=== PATIENT | female | born 1940 | race African-American/Black ===

== ENCOUNTER 2016-09-07 08:52 | Emergency (ER) | payer OTHER, MEDICARE ==
[~2016-09-07] VITALS: Ht 152.4 cm; Wt 49.9 kg
[~2016-09-07 08:52] MED LIST: AMITRIPTYLINE H10 M1 PO; ASPIRIN EC325 MG PO; ATENOLOL25 MG PO; CALCIUM + D 6001 TAB PO; CLOPIDOGREL75 MG PO; DIOVAN320 MG PO; HYDRALAZINE HYD25 MG PO; HYDRODIURIL 2525 MG PO; K-DUR 20MEQ TA20 MEQ PO; LEVOCETIRIZINE D5 MG PO; MOBIC7.5 M1 PO; NORVASC 10MG10 MG PO; SIMVASTATIN40 MG PO; VITAMIN B12 1541 TAB PO; VITAMIN B6100 MG PO; VITAMIN D3400 IU PO
--- NOTE | 2016-09-07 10:19 | ED NECK/BACK PAIN COMPLAINT ---
History of Present Illness General Chief Complaint: Neck/Upper Back Pain/Injury Stated Complaint: LFT SIDED NECK PAIN SINCE THURSDAY Source: patient, old records Exam Limitations: no limitations Vital Signs & Intake/Output Vital Signs & Intake/Output Vital Signs Date Time Temp Pulse Resp B/P B/P Pulse O2 O2 Flow FiO2 Mean Ox Delivery Rate 09/07 906 98.9 80 18 145/74 100 Room Air Allergies Coded Allergies: NO KNOWN ALLERGIES (05/30/15) Reconcile Medications AMITRIPTYLINE HCL (Amitriptyline Hydrochloride) 10 MG TABLET 1 TAB PO QPM HEADACHES (Reported) Amlodipine (Norvasc 10MG) 10 MG TAB 1 TAB PO DAILY HTN Aspirin E.c. (Ecotrin) 325 MG TAB 1 TAB PO DAILY HEART HEALTH (Reported) Atenolol 25 MG TABLET 1 TAB PO DAILY BP (Reported) Calcium/Vitamin D (Calcium + D) 600 MG/200 IU TAB 1 TAB PO DAILY SUPPLEMENT ( Reported) CHOLECALCIFEROL (VITAMIN D3) (Vitamin D3) 400 UNIT TAB.CHEW 1,400 IU PO DAILY SUPPLEMENT (Reported) CLOPIDOGREL BISULFATE (Clopidogrel) 75 MG TABLET 1 TAB PO DAILY BLOOD THINNER (Reported) CYANOCOBALAMIN (VITAMIN B-12) (Vitamin B-12) 1,000 MCG TABLET 1 TAB PO DAILY SUPPLEMENT (Reported) Cyclobenzaprine HCl 5 MG TABLET 1 TAB PO TIDPRN NECK STRAIN HYDRALAZINE HCL (Hydralazine Hydrochloride) 25 MG TABLET 2 TAB PO TID hypertension (Reported) Hydrochlorothiazide (Hydrodiuril 25 MG Tab) 25 MG TABLET 1 TAB PO DAILY BP ( Reported) LEVOCETIRIZINE DIHYDROCHLORIDE (Levocetirizine Dihydrochloride) 5 MG TAB 1 TAB PO DAILY ALLERGIES (Reported) Meloxicam (Mobic) 7.5 MG TABLET 1 TAB PO DAILY PRN pain Naproxen 250 MG TABLET 1 TAB PO BID NECK STRAIN POTASSIUM CHLORIDE (K-Dur) 20 MEQ TAB.ER.PRT 1 TAB PO DAILY POTASSIUM SUPPLEMENT (Reported) Pyridoxine (Vitamin B6) 100 MG TAB 1 TAB PO DAILY SUPPLEMENT (Reported) Simvastatin 40 MG TABLET 1 TAB PO QPM CHOLESTEROL (Reported) Valsartan (Diovan) 320 MG TAB 1 TAB PO DAILY BP (Reported) Triage Note: PT TO ED FOR EXACERBATION OF CHRONIC NECK PAIN, REPORTING MUSCLE SPASM RADIATING INTO SHOULDER. TENDER TO PALPATION. WORSE WITH MOVEMENT. TRIED IBUPROFEN TWO DAYS AGO WITH NO RELIEF, MUSCLE RUB AND ICE BAGS WITH NO IMPROVEMENT. Triage Nurses Notes Reviewed? yes HPI: 76F PMH hypertension, dyslipidemia, left sided stroke 2007 with minor residual right upper extremity hemiparesis, osteoarthritis, and chest pain syndrome PRESENTING WITH ONE DAY OF ACUTE ONSET LEFT NECK AND SHOULDER PAIN. NO TRAUMA TO THE AREA. STARTED WHEN SHE WOKE UP. PAIN IS 10/10, LEFT POSTERIOR PARASPINAL NECK AND SHOULDER, UNABLE TO ROTATE HEAD DUE TO PAIN. DENIES HEADACHE, VISION CHANGES, CHANGES IN STRENGTH OR SENSATION, CHEST PAIN, SOB, PALPITATIONS. Past History Travel History Traveled to [place] past 21 day No Medical History Any Pertinent Medical History? see below for history Neurological: CVA EENT: NONE Cardiovascular: hypertension, hyperlipidemia, HEART MURMUR PALPITATIONS Respiratory: NONE Gastrointestinal: NONE Hepatic: NONE Renal: NONE Musculoskeletal: ARTHRITIS IN NECK Psychiatric: NONE Endocrine: NONE Blood Disorders: NONE Cancer(s): NONE History of MRSA: No History of VRE: No History of CDIFF: No Surgical History Surgical History: non-contributory Psychosocial History Who do you live with Patient/Self What is your primary language Mosotho Tobacco Use: Never used ETOH Use: denies use Illicit Drug Use: denies illicit drug use Family History Hx Contributory? No Review of Systems Review of Systems Constitutional: Reports: no symptoms. Eyes: Reports: no symptoms. Ears, Nose, Throat, Mouth: Reports: no symptoms. Respiratory: Reports: no symptoms. Cardiovascular: Reports: no symptoms. Gastrointestinal/Abdominal: Reports: no symptoms. Musculoskeletal: Reports: see HPI. Skin: Reports: no symptoms. Neurological/Psychological: Reports: no symptoms. All Other Systems: Reviewed and Negative Physical Exam Physical Exam General Appearance: well developed/nourished, mild distress Head: atraumatic Eyes: Bilateral: normal appearance. Ears, Nose, Throat, Mouth: hearing grossly normal Neck: paraspinous muscle tender, stiff neck, tender lateral, LEFT SIDE OF NECK IS TAUT AND TENDER, APPEARS MILDLY SWOLLEN Respiratory: normal breath sounds Cardiovascular: regular rate/rhythm Gastrointestinal: soft, non-tender Back: normal inspection Extremities: normal range of motion Neurologic/Psych: awake, alert, oriented x 3, normal mood/affect Skin: intact, normal color, warm/dry Progress Differential Diagnosis: AAA, aortic dissection, C spine injury, carotid dissection, cauda equina syn, herniated disc, myofascial strain, pyelo/UTI, sciatica, spinal cord inj, thoracic outlet syn, T/L spine injury, ureterolithiasis Plan of Care: TORADOL, FLEXERIL, REASSESS Departure Departure Time of Disposition: 1037 Disposition: HOME OR SELF CARE Condition: Stable Clinical Impression Primary Impression: Neck muscle strain Referrals: JASON MITCHELL APRN (PCP/Family) Additional Instructions: FOLLOW UP WITH YOUR PCP Departure Forms: Customer Survey General Discharge Information Prescriptions: Current Visit Scripts Cyclobenzaprine HCl 1 TAB PO TIDPRN #30 TAB Naproxen 1 TAB PO BID #30 TAB
[2016-09-07] MEDS ORDERED: CYCLOBENZAPRINE5 M2 PO (10:39)
[2016-09-07] MEDS ORDERED: NAPROXEN250 M1 PO (10:39)
[2016-09-07 11:09] VITALS: BP 140/71
== END 2016-09-07 11:10 ==
LOC: ERH 08:52
DX: S16.1XXA Strain of muscle, fascia and tendon at neck level, initial encounter (principal); X58.XXXA Exposure to other specified factors, initial encounter; Y92.9 Unspecified place or not applicable; Y93.9 Activity, unspecified
CPT/HCPCS: 96374; J1885